=== PATIENT | female | born 1990 | race Caucasian/White ===

== ENCOUNTER 2020-05-06 18:42 | Emergency (ER) | payer OTHER ==
[~2020-05-06] VITALS: Ht 157.5 cm; Wt 104.3 kg
[~2020-05-06 18:42] MED LIST: ACETAMINOPHEN325 M1 PO; BENADRYL25 MG PO; FIORICET 50-321 EACH PO; FLAGYL500 MG; NOHOMEMEDICATIONS; PHENERGAN 25 MG25 M1 PO; PREDNISONE 20 M20 MG PO
[2020-05-06] MEDS ORDERED: SERTRALINE HCL100 MG PO (18:53)
[2020-05-06] MEDS ORDERED: MEDROLDOSEPACK PO (19:41)
[2020-05-06] MEDS ORDERED: FLEXERIL PO (19:41)
[2020-05-06 20:12] VITALS: BP 141/89
== END 2020-05-06 20:13 | disposition home or self-care (01) ==
LOC: M.ERS 18:42
DX: M25.512 Pain in left shoulder (principal); F17.210 Nicotine dependence, cigarettes, uncomplicated; Z88.2 Allergy status to sulfonamides; Z98.51 Tubal ligation status